=== PATIENT | male | born 1995 | race Caucasian/White ===

== ENCOUNTER 2021-09-26 13:00 | Outpatient (RCR) | payer OTHER, SELFPAY ==
--- NOTE | 2021-09-21 16:00 | PT.OPPOC ---
Physical, Occupational & Speech Therapy At [facility] Current Diagnoses Dorsalgia, unspecified (09/21/21) Visit Care Team Role Provider Type Heber Mejia MD Attending Provider Non-Staff Family Provider Primary Care Provider Referring Provider Specialty: Medical Address: [address], [place], [address] Email: Plan Of Care PT-OP-T Assessment and Plan Start: 09/20/21 12:31 Freq: Status: Active Protocol: Document 09/21/21 13:45 AMB (Rec: 09/24/21 10:28 AMB [id number]) Physical Therapy Assessment Rehab Potential Rehabilitation Potential Good Evaluation Complexity Number of Personal Factors/Comorbidities 1-2 Number of Body Systems Impaired 3 Clinical Presentation at Evaluation Stable Impairments Impairments Activity Tolerance,Pain, Posture Goals One Impairment Pain management Short Term Goal (STG) Tesfaye will be independent with his HEP for his upper back/scapular pain. STG Duration 4 weeks Storage Worker Goal (LTG) Tesfaye will sleep for 6 hours without being woken secondary to his pain. LTG Duration 8 weeks Assessment Summary Assessment Tesfaye attends physical therapy with chronic right sided pain mostly over rhomboids. He presents with right scapular abduction in stance, with a reduction in pain with active use of his rhomboids. Largest complaint is pain after about 4 hours of sleeping on his back. He is moving to [place] in a week, so PT course will be very short, focusing on HEP and pain management techniques that pt can pursue independently. Pt was instructed in pec, upper trap, and lat stretches and encouraged to reduce weights with rows during gym program. Physical Therapy Plan Frequency and Duration Frequency of Treatment 1x/Week Duration of Treatment 3 weeks Plan of Care Start Date 09/21/21 Plan of Care End Date 10/12/21 Therapeutic Interventions Therapeutic Interventions Home Exercise Program,Manual Therapy,Neuromuscular Re- education,Self-Care/Home Management,Taping,Therapeutic Activities,Therapeutic Exercises Modalities Electric Stimulation Next Visit Focus/Plan Next Note Type Treatment Note Plan of Care Dates Plan of Care Start Date 09/21/21 Plan of Care End Date 10/12/21 Electronically Signed by: Juliana Jaimes PT 09/24/21 [id number] If you are in agreement with this Plan of Care, please return a signed and dated copy. I have reviewed this Plan of Care and certify that the skilled therapy services above are required to meet the patient?s needs. Physician Signature Date Printed Name and Credentials Clinical Instructor Signature Printed Name and Credentials
--- NOTE | 2021-09-21 16:00 | PT.OIE ---
Current Diagnoses Dorsalgia, unspecified (09/21/21) Visit Care Team Role Provider Type Heber Mejia MD Attending Provider Non-Staff Family Provider Primary Care Provider Referring Provider Specialty: Medical Address: [address], [place], [address] Email: Physical Therapy Initial Evaluation PT-OP-A Visit Information Start: 09/20/21 12:31 Freq: Status: Active Protocol: Document 09/21/21 13:45 AMB (Rec: 09/22/21 15:52 AMB [id number]) Out-Patient Physical Therapy Visit Information Visit Information Visit Type Initial Evaluation Visit Start Time 13:45 Visit Stop Time 14:30 Total Visit Minutes 45 Visit Number 1 PT-OP-B Current Condition Start: 09/20/21 12:31 Freq: Status: Active Protocol: Document 09/21/21 13:56 AMB (Rec: 09/21/21 14:06 AMB [id number]) Current Condition History of Current Condition Onset Date 5 years ago Current Complaints right sided upper back pain between scapula and spine History of Current Condition Sleeping- difficulty staying asleep due to the pain, on the right side. Feels a pop and tingling when doing rows. 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 Feels like it has been staying the same over the last 5 years. 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 Personal Factors Other Personal Factors That May Effect Moving to [place] in a week Therapy/Recovery PT-OP-C Subjective Start: 09/20/21 12:31 Freq: Status: Active Protocol: Document 09/21/21 13:45 AMB (Rec: 09/22/21 15:52 AMB [id number]) Patient Questionnaires Oswestry Low Back Index Oswestry Score 12 Oswestry Impairment 1 to 19% Impaired (Score 1-19) PT-OP-J Posture/Palpation/Skin Start: 09/20/21 12:31 Freq: Status: Active Protocol: Document 09/21/21 14:07 AMB (Rec: 09/21/21 14:23 AMB [id number]) Posture Evaluation Comments Posture Comments L shoulder high (L handed) Scapula is 3.5 from spine on the right, 3 on the left, forward head posture hurts more, actively engaging rhomboids feels better. PT-OP-K Range of Motion Start: 09/20/21 12:31 Freq: Status: Active Protocol: Document 09/21/21 13:45 AMB (Rec: 09/22/21 15:56 AMB [id number]) Lumbar Spine Range of Motion Lumbar Spine Active Comments No pain with flexion or extension PT-OP-M Strength Start: 09/20/21 12:31 Freq: Status: Active Protocol: Document 09/21/21 13:45 AMB (Rec: 09/22/21 15:56 AMB [id number]) Shoulder Strength Shoulder Manual Muscle Testing Right Flexion 5 Normal Extension 5 Normal Abduction (C5) 5 Normal Comments No pain with resisted motion PT-OP-Q Treatments Start: 09/20/21 12:31 Freq: Status: Active Protocol: Document 09/21/21 13:45 AMB (Rec: 09/22/21 15:52 AMB [id number]) Therapeutic Exercises Sitting Exercises UT stretch Reps/Minutes 30x2 Standing Exercises corner pec stretch Reps/Minutes 30x2 lat stretch Standing Exercise Name doorway Reps/Minutes 30x2 PT-OP-T Assessment and Plan Start: 09/20/21 12:31 Freq: Status: Active Protocol: Document 09/21/21 13:45 AMB (Rec: 09/24/21 10:28 AMB [id number]) Physical Therapy Assessment Rehab Potential Rehabilitation Potential Good Evaluation Complexity Number of Personal Factors/Comorbidities 1-2 Number of Body Systems Impaired 3 Clinical Presentation at Evaluation Stable Impairments Impairments Activity Tolerance,Pain, Posture Goals One Impairment Pain management Short Term Goal (STG) Tesfaye will be independent with his HEP for his upper back/scapular pain. STG Duration 4 weeks Landscape Account Manager Goal (LTG) Tesfaye will sleep for 6 hours without being woken secondary to his pain. LTG Duration 8 weeks Assessment Summary Assessment Tesfaye attends physical therapy with chronic right sided pain mostly over rhomboids. He presents with right scapular abduction in stance, with a reduction in pain with active use of his rhomboids. Largest complaint is pain after about 4 hours of sleeping on his back. He is moving to [place] in a week, so PT course will be very short, focusing on HEP and pain management techniques that pt can pursue independently. Pt was instructed in pec, upper trap, and lat stretches and encouraged to reduce weights with rows during gym program. Physical Therapy Plan Frequency and Duration Frequency of Treatment 1x/Week Duration of Treatment 3 weeks Plan of Care Start Date 09/21/21 Plan of Care End Date 10/12/21 Therapeutic Interventions Therapeutic Interventions Home Exercise Program,Manual Therapy,Neuromuscular Re- education,Self-Care/Home Management,Taping,Therapeutic Activities,Therapeutic Exercises Modalities Electric Stimulation Next Visit Focus/Plan Next Note Type Treatment Note
--- NOTE | 2021-09-26 16:00 | PT.OTN ---
Current Diagnoses Dorsalgia, unspecified (09/26/21) Physical Therapy Treatment Note PT-OP-A Visit Information Start: 09/20/21 12:31 Freq: Status: Active Protocol: Document 09/26/21 13:02 AMB (Rec: 09/26/21 14:26 AMB [id number]) Out-Patient Physical Therapy Visit Information Visit Information Visit Type Treatment Note Visit Start Time 13:00 Visit Stop Time 13:45 Total Visit Minutes 45 Visit Number 2 PT-OP-B Current Condition Start: 09/20/21 12:31 Freq: Status: Active Protocol: Document 09/21/21 13:56 AMB (Rec: 09/21/21 14:06 AMB [id number]) Current Condition History of Current Condition Onset Date 5 years ago Current Complaints right sided upper back pain between scapula and spine History of Current Condition Sleeping- difficulty staying asleep due to the pain, on the right side. Feels a pop and tingling when doing rows. 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 Feels like it has been staying the same over the last 5 years. 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 Personal Factors Other Personal Factors That May Effect Moving to [place] in a week Therapy/Recovery PT-OP-C Subjective Start: 09/20/21 12:31 Freq: Status: Active Protocol: Document 09/26/21 13:02 AMB (Rec: 09/26/21 14:26 AMB [id number]) OP-PT Subjective Patient Comments Patient Comments MOre irritated after stretching, R scapu, R tricep. PT-OP-J Posture/Palpation/Skin Start: 09/20/21 12:31 Freq: Status: Active Protocol: Document 09/21/21 14:07 AMB (Rec: 09/21/21 14:23 AMB [id number]) Posture Evaluation Comments Posture Comments L shoulder high (L handed) Scapula is 3.5 from spine on the right, 3 on the left, forward head posture hurts more, actively engaging rhomboids feels better. PT-OP-K Range of Motion Start: 09/20/21 12:31 Freq: Status: Active Protocol: Document 09/21/21 13:45 AMB (Rec: 09/22/21 15:56 AMB [id number]) Lumbar Spine Range of Motion Lumbar Spine Active Comments No pain with flexion or extension PT-OP-M Strength Start: 09/20/21 12:31 Freq: Status: Active Protocol: Document 09/21/21 13:45 AMB (Rec: 09/22/21 15:56 AMB [id number]) Shoulder Strength Shoulder Manual Muscle Testing Right Flexion 5 Normal Extension 5 Normal Abduction (C5) 5 Normal Comments No pain with resisted motion PT-OP-Q Treatments Start: 09/20/21 12:31 Freq: Status: Active Protocol: Document 09/26/21 13:00 AMB (Rec: 09/28/21 09:41 AMB [id number]) Manual Therapy Treatment Soft Tissue Mobilization 1 Body Location rhomboids, parascapular muscles Mobilization Type Myofascial Release,Sustained Pressure,Trigger Point Release Intensity/Depth Moderate Body Position Prone Joint Mobilizations scapula Joint R scap Direction all planes Grade IV Body Position Prone PT-OP-R Modalities Start: 09/20/21 12:31 Freq: Status: Active Protocol: Document 09/26/21 13:00 AMB (Rec: 09/28/21 09:41 AMB [id number]) Electric Stimulation Electric Stimulation Interferential Current (IFC) Body Location rhomboids Target/Sweep Sweep Patient Position Sitting PT-OP-T Assessment and Plan Start: 09/20/21 12:31 Freq: Status: Active Protocol: Document 09/26/21 13:02 AMB (Rec: 09/26/21 14:26 AMB [id number]) Physical Therapy Assessment Goals One Impairment Pain management Short Term Goal (STG) Tesfaye will be independent with his HEP for his upper back/scapular pain. STG Duration 4 weeks Forensic Document Examiner Goal (LTG) Tesfaye will sleep for 6 hours without being woken secondary to his pain. LTG Duration 8 weeks Assessment Summary Assessment Tesfaye is going to discharge , as [place] is [place]. Encouraged to purchase a TENS unit if he felt it was helpful, continue with stretching gently a few times a day and then seek physical therapy when in [place] if pain does not resolve. Physical Therapy Plan Discharge Physical Therapy Discharge Comments Patient moving out of state Next Visit Focus/Plan Next Note Type Treatment Note
--- NOTE | 2021-09-28 09:47 | PT.OPDS ---
Current Diagnoses Dorsalgia, unspecified (09/26/21) Visit Care Team Role Provider Type Heber Mejia MD Attending Provider Non-Staff Family Provider Primary Care Provider Referring Provider Specialty: Medical Address: [address], [place], [address] Email: Visit Number Visit Number 2 Discharge Summary PT-OP-B Current Condition Start: 09/20/21 12:31 Freq: Status: Active Protocol: Document 09/21/21 13:56 AMB (Rec: 09/21/21 14:06 AMB [id number]) Current Condition History of Current Condition Onset Date 5 years ago Current Complaints right sided upper back pain between scapula and spine History of Current Condition Sleeping- difficulty staying asleep due to the pain, on the right side. Feels a pop and tingling when doing rows. 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 Feels like it has been staying the same over the last 5 years. 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 Personal Factors Other Personal Factors That May Effect Moving to [place] in a week Therapy/Recovery PT-OP-C Subjective Start: 09/20/21 12:31 Freq: Status: Active Protocol: Document 09/26/21 13:02 AMB (Rec: 09/26/21 14:26 AMB [id number]) OP-PT Subjective Patient Comments Patient Comments MOre irritated after stretching, R scapu, R tricep. PT-OP-J Posture/Palpation/Skin Start: 09/20/21 12:31 Freq: Status: Active Protocol: Document 09/21/21 14:07 AMB (Rec: 09/21/21 14:23 AMB [id number]) Posture Evaluation Comments Posture Comments L shoulder high (L handed) Scapula is 3.5 from spine on the right, 3 on the left, forward head posture hurts more, actively engaging rhomboids feels better. PT-OP-K Range of Motion Start: 09/20/21 12:31 Freq: Status: Active Protocol: Document 09/21/21 13:45 AMB (Rec: 09/22/21 15:56 AMB [id number]) Lumbar Spine Range of Motion Lumbar Spine Active Comments No pain with flexion or extension PT-OP-M Strength Start: 09/20/21 12:31 Freq: Status: Active Protocol: Document 09/21/21 13:45 AMB (Rec: 09/22/21 15:56 AMB [id number]) Shoulder Strength Shoulder Manual Muscle Testing Right Flexion 5 Normal Extension 5 Normal Abduction (C5) 5 Normal Comments No pain with resisted motion PT-OP-T Assessment and Plan Start: 09/20/21 12:31 Freq: Status: Active Protocol: Document 09/26/21 13:02 AMB (Rec: 09/26/21 14:26 AMB [id number]) Physical Therapy Assessment Goals One Impairment Pain management Short Term Goal (STG) Tesfaye will be independent with his HEP for his upper back/scapular pain. STG Duration 4 weeks Slash Trimmer Goal (LTG) Tesfaye will sleep for 6 hours without being woken secondary to his pain. LTG Duration 8 weeks Assessment Summary Assessment Tesfaye is going to discharge , as he is [place] the [place]. Encouraged to purchase a TENS unit if he felt it was helpful, continue with stretching gently a few times a day and then seek physical therapy when in [place] if pain does not resolve. Physical Therapy Plan Discharge Physical Therapy Discharge Comments Patient moving out of state Next Visit Focus/Plan Next Note Type Treatment Note
== END 2021-09-29 11:52 ==
LOC: PHYS 13:00
DX: M54.9 Dorsalgia, unspecified (principal)
CPT/HCPCS: 97014; 97140; 97161; G0283